=== PATIENT | male | born 1955 | race Caucasian/White ===

== ENCOUNTER 2018-07-01 18:21 | Emergency (ER) | payer MEDICARE, OTHER ==
[~2018-07-01] VITALS: Ht 180.3 cm; Wt 70.3 kg
[2018-07-01 18:48] LABS: BASO # 0.1 x10^3/uL (0.0-0.2); BASO % 1 % (0-3); EOS # 0.2 x10^3/uL (0.0-0.7); EOS % 3 % (0-3); HEMATOCRIT 45.2 % (39.0-53.0); LYMPH # 1.5 x10^3/uL (1.0-4.8); LYMPH % 17 % (24-48); MEAN CORPUSCULAR HEMOGLOBIN 28 pg (25-35); MEAN CORPUSCULAR HGB CONC 33 g/dL (31-37); MEAN CORPUSCULAR VOLUME 83 fL (79-100); MONO # 0.7 x10^3/uL (0.0-1.1); MONO % 8 % (0-9); NEUT # 6.3 x10^3uL (1.8-7.7); NEUT % 71 % (31-73); PLATELET COUNT 270 x10^3/uL (140-400); RED BLOOD COUNT 5.43 x10^6/uL (4.30-5.70); RED CELL DISTRIBUTION WIDTH 14.8 % (11.5-14.5); WHITE BLOOD COUNT 8.9 x10^3/uL (4.0-11.0)
--- NOTE | 2018-07-01 18:54 | RAD ---
CHEST AP ONLY History: Shortness of breath.. The heart size is nonenlarged. No evidence of pneumothorax, infiltrate or pleural effusion. Bones appear intact. Mild degenerative changes at the acromioclavicular joints. Aorta mildly calcified. IMPRESSION: No evidence of consolidating infiltrate. Electronically signed by: Jose L Gutierrez MD (07/01/2018 6:51 PM) [facility]
--- NOTE | 2018-07-01 18:56 | PHYS DOC ---
Past Medical History Past Medical History: COPD Past Surgical History: Tonsillectomy Additional Information: 0.5 PPD Alcohol Use: None Drug Use: None Adult General Chief Complaint Chief Complaint: SYNCOPE HPI HPI Patient is a 53 year old male with history of COPD who presents with increased shortness of breath, hypoxia and axonal fall from standing resulting in head injury. Patient was attending a local outdoor sporting event when he became short of breath walking to see. Patient began to have labored breathing, became confused stumbled and fell hitting his left head, arm, wrist and hand. Denies loss of consciousness. Patient was labored breathing on EMS arrival with O2 sat in the 80s. Patient started on 2 L supplemental oxygen. No breathing treatment and steroids given prior to ED arrival. Patient reports productive cough of clear sputum for the past 10 days. Denies fever chills, nausea vomiting or sweats. No history of CAD, CHF, valvular heart disease or arrhythmia. Nice leg pain or swelling. No history of DVT or PE. Patient is a current smoker. Denies drugs or alcohol. Patient is visiting from out of town.[] Review of Systems Review of Systems Review of symptoms as per history of present illness. All other review symptoms are negative.] All other systems were reviewed and found to be within normal limits, except as documented in this note. Current Medications Current Medications Current Medications Medications (Trade) Dose Ordered Sig/Sherri Start Time Stop Time Status Last Admin Dose Admin Albuterol/ Ipratropium (Duoneb) 3 ml 1X ONCE 07/01/18 19:00 07/01/18 19:01 DC 07/01/18 19:44 3 ML Fentanyl Citrate (Fentanyl 2ml Vial) 50 mcg 1X ONCE 07/01/18 19:00 07/01/18 19:01 DC 07/01/18 19:17 50 MCG Furosemide (Lasix) 40 mg 1X ONCE 07/01/18 19:45 07/01/18 19:46 DC 07/01/18 20:04 40 MG Methylprednisolone Sodium Succinate (SOLU-Medrol 40MG VIAL) 40 mg 1X ONCE 07/01/18 19:00 07/01/18 19:01 DC 07/01/18 19:16 40 MG Ondansetron HCl (Zofran) 4 mg 1X ONCE 07/01/18 19:00 07/01/18 19:01 DC 07/01/18 19:16 4 MG Allergies Allergies Allergies Coded Allergies Type Severity Reaction Last Updated Verified Penicillins Allergy Unknown 07/01/18 Yes EKG: Sinus rhythm, rate 83, left atrial enlargement, right axis deviation, prolonged QT interval, QTC 493. No acute ST elevation, nonspecific ST-T wave T- wave changes. Physical Exam Physical Exam Constitutional: Well developed, well nourished, no acute distress, non-toxic appearance. [] HENT: Normocephalic, 3 centimeter jagged laceration left forehead,, bilateral external ears normal, oropharynx moist, no oral exudates, nose normal. [] Eyes: PERRLA, EOMI, conjunctiva normal, no discharge. [] Neck: Normal range of motion, no midline pain tenderness.. [] Cardiovascular:Heart rate regular rhythm, no murmur, no leg pain or swelling. Negative Homans signs. [] Lungs & Thorax: Respirations labored, mild tachypnea, respiratory rate mid 20s, rales throughout left lung belcher.[] Abdomen: Bowel sounds normal, soft, no tenderness. [] Skin: Warm, dry, no erythema, no rash. [] Back: No tenderness. [] Extremities: No tenderness, lesions left elbow, wrist and hand.,. [] Neurologic: Alert and oriented X 3, normal motor function, normal sensory function, no focal deficits noted. [] Psychologic: Affect normal, judgement normal, mood normal. [] Current Patient Data Vital Signs Vital Signs Date Time Temp Pulse Resp B/P (MAP) Pulse Ox O2 Delivery O2 Flow Rate FiO2 07/01/18 20:39 88 18 132/70 (90) 95 Room Air 07/01/18 20:00 2.0 07/01/18 18:21 97.7 97.7 Lab Values Laboratory Tests Test 07/01/18 18:41 White Blood Count 8.9 x10^3/uL (4.0-11.0) Red Blood Count 5.43 x10^6/uL (4.30-5.70) Hemoglobin 15.0 g/dL (13.0-17.5) Hematocrit 45.2 % (39.0-53.0) Mean Corpuscular Volume 83 fL (79-100) Mean Corpuscular Hemoglobin 28 pg (25-35) Mean Corpuscular Hemoglobin Concent 33 g/dL (31-37) Red Cell Distribution Width 14.8 % (11.5-14.5) H Platelet Count 270 x10^3/uL (140-400) Neutrophils (%) (Auto) 71 % (31-73) Lymphocytes (%) (Auto) 17 % (24-48) L Monocytes (%) (Auto) 8 % (0-9) Eosinophils (%) (Auto) 3 % (0-3) Basophils (%) (Auto) 1 % (0-3) Neutrophils # (Auto) 6.3 x10^3uL (1.8-7.7) Lymphocytes # (Auto) 1.5 x10^3/uL (1.0-4.8) Monocytes # (Auto) 0.7 x10^3/uL (0.0-1.1) Eosinophils # (Auto) 0.2 x10^3/uL (0.0-0.7) Basophils # (Auto) 0.1 x10^3/uL (0.0-0.2) Sodium Level 140 mmol/L (136-145) Potassium Level 4.5 mmol/L (3.5-5.1) Chloride Level 103 mmol/L (98-107) Carbon Dioxide Level 25 mmol/L (21-32) Anion Gap 12 (6-14) Blood Urea Nitrogen 28 mg/dL (8-26) H Creatinine 1.5 mg/dL (0.7-1.3) H Estimated GFR (Cockcroft-Gault) 48.6 BUN/Creatinine Ratio 19 (6-20) Glucose Level 116 mg/dL (70-99) H Calcium Level 9.2 mg/dL (8.5-10.1) Total Bilirubin 0.5 mg/dL (0.2-1.0) Aspartate Amino Transferase (AST) 83 U/L (15-37) H Alanine Aminotransferase (ALT) 93 U/L (16-63) H Alkaline Phosphatase 71 U/L (46-116) KG-Rzl-Y-Type Natriuretic Peptide 2588 pg/mL (0-124) H Total Protein 6.8 g/dL (6.4-8.2) Albumin 3.4 g/dL (3.4-5.0) Albumin/Globulin Ratio 1.0 (1.0-1.7) Laboratory Tests 5/11/19 18:41 Laboratory Tests 07/01/18 18:41 EKG EKG [EKG: Normal sinus rhythm, heart rate 83, QTC 493, nonspecific ST-T wave changes.] Radiology/Procedures Radiology/Procedures [CT head: No acute intracranial findings per radiology report Chest x-ray: No acute cardiopulmonary disease per radiology report Laceration repair procedure note: 2 ML's of 1% lidocaine with epinephrine was injected over the left frontal forehead laceration. The wound was explored, cleansed, and closed with 5-0 Prolene with this continuous locking suture for single layer closure. Good wound edge approximation was obtained.] Course & Med Decision Making Course & Med Decision Making Pertinent Labs and Imaging studies reviewed. (See chart for details) [COPD exacerbation with respiratory failure with hypoxia resulting in syncope prior to ED arrival. CT head does not show evidence of acute cranial injury. Laceration repaired. Recommendations for hospital admission, continued breathing treatments and steroids. Patient declines hospital admission at this time. He plans to return to the sporting event after discharge from the emergency department. He verbalizes understands that he is at risk for fall, injury, respiratory distress and failure and returning to the hospital in a worsening medical condition. He is instructed to return to the ED if he changes mind regarding hospital admission or if his symptoms worsen. Typical closed head injury and wound care instructions given. Patient confirms that he has inhaler available to him. Prednisone, Zithromax, Lasix prescribed] Dragon Disclaimer Dragon Disclaimer This electronic medical record was generated, in whole or in part, using a voice recognition dictation system. Departure Departure Impression: Primary Impression: Acute respiratory failure with hypoxia Additional Impressions: Closed head injury Facial laceration COPD exacerbation Disposition: 07 AGAINST MEDICAL ADVICE Condition: IMPROVED Patient Instructions: Chronic Obstructive Pulmonary Disease Exacerbation, [id number], Head Injury, Adult, [id number], Laceration Care, Adult, [id number] Additional Instructions: Please take steroids, antibiotics as directed and use albuterol inhaler every 2 hours for the next 24 hours while awake. Stay indoors and follow-up with your PCP early next week for reevaluation. If your symptoms worsen or if you change her mind regarding hospital admission, please return to the emergency department immediately. Scripts Furosemide (LASIX) 20 Mg Tablet 1 TAB PO DAILY, #4 TAB 5 Refills Prov: CLINTON BLUE DO 07/01/18 Azithromycin (ZITHROMAX) 250 Mg Tablet 1 PKG PO UD, #6 TAB Prov: CLINTON BLUE DO 07/01/18 Prednisone (PREDNISONE) 50 Mg Tablet 1 TAB PO DAILY, #5 TAB Prov: CLINTON BLUE DO 07/01/18 Problem Qualifiers CLINTON BLUE DO July 01, 2018 18:56
[2018-07-01] MEDS ORDERED: IPRATRPIUM/ALBUTEROL 0.5/2.5MG 3 ML NEBU. NEB ONE (19:00)
[2018-07-01] MEDS ORDERED: ONDANSETRON PF 4 MG/2 ML VIAL. IV ONE (19:00)
[2018-07-01] MEDS ORDERED: methylPREDNISolone SOD SUCC PF 40 MG/ML VIAL. IV ONE (19:00)
[2018-07-01] MEDS ORDERED: fentaNYL PF VIAL 100 MCG/2 ML VIAL IV ONE (19:00)
[2018-07-01 19:01] LABS: CALCIUM 9.2 mg/dL (8.5-10.1); CREATININE 1.5 mg/dL (0.7-1.3); GFR 48.6; POTASSIUM 4.5 mmol/L (3.5-5.1)
[2018-07-01 19:06] LABS: ALBUMIN 3.4 g/dL (3.4-5.0); TOTAL BILIRUBIN 0.5 mg/dL (0.2-1.0); TOTAL PROTEIN 6.8 g/dL (6.4-8.2)
--- NOTE | 2018-07-01 19:21 | RAD ---
CT HEAD WO CONTRAST Indication: Fell and hit left side just above the eye. Exposure: One or more of the following individualized dose reduction techniques were utilized for this examination: 1. Automated exposure control 2. Adjustment of the mA and/or kV according to patient size 3. Use of iterative reconstruction technique. Technique: Standard imaging without intravenous contrast. No comparison. No evidence of acute intracranial hemorrhage, mass effect, midline shift or abnormal extra-axial fluid collection. Ventricles and sulci appear symmetric, mildly prominent compatible with mild atrophy or involutional change. Advanced white matter low-density bilaterally, nonspecific. More focal periventricular hypoattenuating foci suggesting small lacunar infarcts. There is no evidence of cerebral swelling or asymmetric sulcal effacement. Orbits are symmetric. There is mild scalp swelling in the left frontal area, likely area of bruising or hemorrhage. This also extends into the left orbital area. No evidence of a depressed skull fracture. The partially visualized sinuses demonstrate minimal left maxillary sinus mucosal thickening. IMPRESSION: 1. No evidence of acute intracranial hemorrhage. 2. Small left frontal and periorbital scalp swelling or hematoma. 3. Extensive white matter low attenuation bilaterally. Nonspecific, possibilities include advanced small vessel ischemic disease, demyelinating disorder or vasculitis. Electronically signed by: Jose L Gutierrez MD (07/01/2018 7:18 PM) [facility]
[2018-07-01] MEDS ORDERED: FUROSEMIDE 40 MG/4 ML VIAL. IVP ONE (19:45)
[2018-07-01] MEDS ORDERED: PRED50TA PO (20:33)
[2018-07-01] MEDS ORDERED: FURO-69 PO (20:33)
[2018-07-01] MEDS ORDERED: AZIT250T PO (20:33)
[2018-07-01 20:39] VITALS: BP 132/70
--- NOTE | 2018-07-02 15:52 | EKG ---
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
== END 2018-07-01 20:49 | disposition left against medical advice (07) ==
LOC: ER 18:21 → EDBD 18:21 → ER 20:49
DX: S01.81XA Laceration without foreign body of other part of head, initial encounter (principal); J96.01 Acute respiratory failure with hypoxia; J44.1 Chronic obstructive pulmonary disease with (acute) exacerbation; R55 Syncope and collapse; F17.200 Nicotine dependence, unspecified, uncomplicated; Z79.899 Other long term (current) drug therapy; Z88.0 Allergy status to penicillin; Z90.89 Acquired absence of other organs; W01.0XXA Fall on same level from slipping, tripping and stumbling without subsequent striking against object, initial encounter; Y93.89 Activity, other specified; Y92.89 Other specified places as the place of occurrence of the external cause; Y99.8 Other external cause status
CPT/HCPCS: 12013; 36415; 70450; 71045; 80053; 83880; 85025; 93005; 94640; 96374; 96375; 99285; J1940; J2405; J2920; J3010; J7620